=== PATIENT | female | born 1995 | race African-American/Black ===

== ENCOUNTER 2023-02-26 16:56 | Emergency (ER) | payer BC, SELFPAY ==
--- NOTE | ~2023-02-26 | XR_ITS ---
EXAM: XR ankle RT min 3V DATE: 02/26/2023 17:36 HISTORY: rt ankle swelling no injury . COMPARISON: None available. FINDINGS: Normal mineralization. No fracture or dislocation. No lytic or blastic lesion. Joint space s are maintained. No erosion or periosteal change. Medial soft tissue swelling. IMPRESSION: No acute osseous finding in the right ankle. Reviewed, dictated and finalized at location K.
[2023-02-26 17:04] VITALS: BP 164/108; PULSE 87; RESP 16; TEMP 36.8; O2SAT 97
--- NOTE | 2023-02-26 17:22 | ED.EXTPRO ---
HPI - Extremity Problem General Chief complaint: Extremity Injury, Lower Stated complaint: Right Ankle Pain Time Seen by Provider: 02/26/23 17:23 Source: patient and RN notes reviewed Mode of arrival: ambulatory Limitations: no limitations History of Present Illness HPI Narrative: 27-year-old female presents with concern for right ankle pain and swelling. She denies injury or trauma. 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 She reports her pain is worse when she puts her foot flat. She denies taking any medication for her pain. MD Complaint: extremity pain Related Data Home Medications Medication Instructions Recorded Confirmed Unable to Obtain Home Medications 02/26/23 02/26/23 Allergies Allergy/AdvReac Type Severity Reaction Status Date / Time No Known Allergies Allergy Verified 11/11/21 16:01 Review of Systems Review of Systems: CONSTITUTIONAL: Denies malaise, chills, sweats, or fever. CARDIOVASCULAR: Denies chest pain, palpitations, or edema. RESPIRATORY: Denies cough or dyspnea. SKIN: Denies rash or itching, bruising, redness, swelling. MUSCULOSKELETAL: Reports right ankle pain and swelling NEUROLOGIC: Denies numbness, weakness All systems reviewed & are unremarkable except as noted in HPI and below PMFSH Social History Social History (System 11/11/21 @ 16:01 by Geronimo Love) Smoking status: Never smoker Alcohol intake: never Substance use: never Living arrangements: with family Occupation/Education: occupation Gender identity (if verbalized by the patient): Female Comments At time of signature, agree with nursing past medical, surgical, social and family history. There is no relevant family history pertinent to the presenting complaint Exam Narrative: GENERAL: Well-appearing, well-nourished, and in no acute distress. HEAD: Normocephalic, atraumatic. EYES: PERRLA, conjunctivae clear NECK: Supple. CHEST: Speaks in full sentences. No respiratory distress. HEART: Regular rate and rhythm. Normal and equal peripheral pulses. EXTREMITIES: Right ankle, foot, digits have grossly normal strength and sensation, grossly normal range of motion. Mild medial edema, no erythema, warmth, ecchymosis. 5/5 strength with ankle in digit flexion and extension. Normal sensation with sensitivity to light touch and pain. Medial ankle tenderness. No open wounds, no skin tenting, no devitalized tissue or atrophy, no trophic changes, no obvious deformity, alignment normal, nearby joints and structures intact. Distal pulses palpable and equal bilaterally, skin warm, dry, pink. Capillary refill less than 3 seconds. SKIN: Warm, dry, no rash. NEURO: Alert and oriented x3. PSYCH: Normal mood and affect Course Course Emergency Course: Patient is aware of diagnosis, understands and agrees to treatment plan. Anticipatory guidance given. Patient agrees to follow-up as directed and is aware of reasons to seek care at the emergency department. Portions of this record may have been created with voice recognition software Level of Care: Express Care Visit Vital Signs Vital signs: Vital Signs Temperature 98.3 F 02/26/23 17:04 Pulse Rate 87 02/26/23 17:04 Respiratory Rate 16 02/26/23 17:04 Blood Pressure 164/108 H 02/26/23 17:04 Pulse Oximetry 97 02/26/23 17:04 Oxygen Delivery Room Air 02/26/23 17:04 Temperature 98.3 F 02/26/23 17:04 Pulse Rate 87 02/26/23 17:04 Respiratory Rate 16 02/26/23 17:04 Blood Pressure 164/108 H 02/26/23 17:04 Pulse Oximetry 97 02/26/23 17:04 Oxygen Delivery Room Air 02/26/23 17:04 Reviewed. MDM - Extremity (Nontraumatic) Imaging Data My impression: Images reviewed, interpreted by radiologist, agree, see report. Radiologist's impression: EXAM:? XR ankle RT min 3V DATE: 02/26/2023 17:36 HISTORY: rt ankle swelling no injury . COMPARISON:? None available. FINDINGS:? Normal mineralization. No fractur
== END 2023-02-26 17:56 | disposition home or self-care (01) ==
PROVIDERS: Emergency Provider Nurse Practitioner; PCP Family Medicine
DX: S93.401A Sprain of unspecified ligament of right ankle, initial encounter (principal); S96.911A Strain of unspecified muscle and tendon at ankle and foot level, right foot, initial encounter; X58.XXXA Exposure to other specified factors, initial encounter; I10 Essential (primary) hypertension
CPT/HCPCS: 73610; 99213; G0463